=== PATIENT | male | born 1955 | race Caucasian/White ===

== ENCOUNTER 2017-10-29 20:53 | Inpatient (IN) | payer OTHER ==
--- NOTE | 2017-10-29 21:00 | CPEKG ---
Heart Rate: 91 RR Interval: 659 P-R Interval: 204 QRSD Interval: 130 QT Interval: 412 QTC Interval: 508 P [place]: 65 QRS [place]: 18 T Wave [place]: 102 EKG Severity - ABNORMAL ECG - EKG Impression: SINUS RHYTHM EKG Impression: LEFT BUNDLE BRANCH BLOCK Electronically Signed By: Lance Cohen 02-Nov-2017 09:07:41
--- NOTE | 2017-10-29 21:01 | EDPHY ---
HPI/HX/ROS/PE/MDM Narrative: CHIEF COMPLAINT: Cardiac Arrest HPI: This patient is an anticoagulated 62 y/o male with remote history of bicuspid valve replacement arriving via EMS following a witnessed cardiac arrest and subsequent return of circulation following 2 AED shocks. The patient was playing baseball and began to feel dizzy. He went to his hands and knees, and then lost consciousness. Bystanders noted he was pulseless and apneic and started CPR. Bystanders performed CPR for 4-5 minutes before an AED was brought to the scene. The AED recommended two shocks administered. On EMS arrival, the patient had return of circulation with agonal breathing. EMS crews reported "ST elevation throughout" on EKG while in route with the patient. Currently, the patient is conscious, alert, and conversant. He complains of lightheadedness and mild nausea. He has some chest pain secondary to CPR. He denies any chest pain or pressure prior to the episode. He denies being struck by a baseball or any other trauma. He has history of a bicuspid valve replacement in 1991 and is anticoagulated (Coumadin). He also takes daily ASA 81mg. REVIEW OF SYSTEMS: Aside from elements discussed in the HPI, a comprehensive 10-point review of systems was reviewed and is negative. PMH: History of bicuspid valve replacement (1991), hypothyroidism, history of prostate CA SOCIAL HISTORY: Family at bedside. . Lives in [place]. Employed. PHYSICAL EXAM: General:Patient is alert, in no acute distress. ENT:Eyes are normal to inspection. ENT inspection normal. Neck: Normal inspection. Full range of motion. Respiratory:No respiratory distress. Breath sounds normal bilaterally. Cardiovascular: Post-surgical scar over sternum. [place] from CPR and AED pads. Regular rate and rhythm. Strong peripheral pulses. Normal cap refill. Abdomen:The abdomen is nontender to palpation. There are no peritoneal signs. There are normal bowel sounds. Back: Normal to inspection. No tenderness to palpation. Skin: Normal color. No rash. Warm and dry. Extremities: Normal appearance. Full range of motion. Neuro: Oriented x3. Normal motor function. Normal sensory function. ED Course: 20:54 Met EMS at bedside. Cardiac alert. 62 y/o male presents after cardiac arrest and spontaneous return of circulation following 2 AED shocks in the field. He is currently alert and conversant. Plan for EKG, chest x-ray, labs including POC troponin, CBC, chemistries. EKG was ordered and interpreted by myself. Please see [employer] system for official reading. Sinus rhythm. LBBB. Dr. Dailey, business banking officer, en route. Attempting to acquire AED for report. Cardiology to admit. 21:[address] Dailey, business banking officer. He will evaluate the patient. CXR negative for acute processes. POC Troponin 0.05. INR 1.81. Laboratory studies otherwise largely unremarkable. Plan to admit. Dr. Dailey accepts admission for post-cardiac arrest management. - Data Points Imaging Results: Imaging Impressions Chest X-Ray 10/29/17 20:55 Impression: 1. No acute pulmonary disease. 2. Prior thoracotomy. 3. Consider chest two views when the patient's medical condition permits. Imaging: I viewed and interpreted images myself Laboratory Results: Laboratory Results 10/29/17 19:45 10/29/17 19:45 10/29/17 10/29/17 10/29/17 20:58 19:45 19:45 WBC 8.19 10^3/uL 10^3/uL (3.80-9.50) RBC 4.96 10^6/uL 10^6/uL (4.40-6.38) Hgb 14.7 g/dL g/dL (13.7-17.5) Hct 42.8 % % (40.0-51.0) MCV 86.3 fL fL (81.5-99.8) MCH 29.6 pg pg (27.9-34.1) MCHC 34.3 g/dL g/dL (32.4-36.7) RDW 12.5 % % (11.5-15.2) Plt Count 164 10^3/uL 10^3/uL (150-400) MPV 10.2 fL fL (8.7-11.7) Neut % (Auto) Not Reported Lymph % (Auto) Not Reported [place] % (Auto) Not Reported Eos % (Auto) Not Reported Baso % (Auto) Not Reported Nucleat RBC Rel Count Not Reported Absolute Neuts (auto) Not Reported Absolute Lymphs (auto) Not Reported Absolute Monos (auto) Not Reported Absolute Eos (auto) Not Reported Absolute Basos (auto) Not Reported Absolute Nucleated RBC Not Reported Immature Gran % Not Reported Seg Neutrophils % 42.0 % % Band Neutrophils % 1.0 % % Lymphocytes % 40.0 % % Monocytes % 5.0 % % Eosinophils % 7.0 % % Basophils % 2.0 % % Metamyelocytes % 2.0 % % Myelocytes % 1.0 % % Promyelocytes % 0 % % Blast Cells % 0 % % Immature Gran # Not Reported Absolute Seg Neuts 3.44 10^/uL 10^/uL (1.70-6.50) Absolute Band Neuts 0.08 10^3/uL 10^3/uL (0.00-0.70) Absolute Lymphocytes 3.28 10^3/uL H 10^3/uL (1.00-3.00) Absolute Monocytes 0.41 10^3/uL 10^3/uL (0.30-0.80) Absolute Eosinophils 0.57 10^3/uL H 10^3/uL (0.03-0.40) Absolute Basophils 0.16 10^3/uL H 10^3/uL (0.02-0.10) Absolute Metamyelocyte 0.16 10^3/mL H 10^3/mL (0.00-0.00) Absolute Myelocytes 0.08 10^3/mL H 10^3/mL (0.00-0.00) Absolute Promyelocytes 0.00 10^3/uL 10^3/uL (0.00-0.00) Absolute Plasma Cells 0.00 10^3/uL 10^3/uL (0.00-0.00) Nucleated RBCs 1.0 /100 WBC H /100 WBC (0-0) RBC/WBC/PLT Morphology NORMAL (NORMAL) Absolute Blast Cells 0.00 10^3/uL 10^3/uL (0.00-0.00) Plasma Cells % 0 % % Platelet Estimate ADEQUATE (ADEQ) Sodium 137 mEq/L mEq/L (135-145) Potassium 3.2 mEq/L L mEq/L (3.3-5.0) Chloride 107 mEq/L mEq/L (97-110) Carbon Dioxide 16 mEq/l L mEq/l (22-31) Anion Gap 14 mEq/L mEq/L (8-16) BUN 19 mg/dL mg/dL (7-23) Creatinine 1.0 mg/dL mg/dL (0.7-1.3) Estimated GFR > 60 Glucose 172 mg/dL H mg/dL (70-100) Calcium 8.5 mg/dL mg/dL (8.5-10.4) POC Troponin I 0.05 ng/mL ng/mL (0.00-0.08) Medications Given: Morphine Sulfate (Morphine) 2 mg IVP Q1HR PRN PRN Reason: Pain, Severe Stop: 11/08/17 23:01 Last Admin: 10/29/17 23:52 Dose: 2 mg Discontinued Medications Sodium Chloride (Ns) 1,000 mls @ 0 mls/hr IV EDNOW ONE; Wide Open PRN Reason: Protocol Stop: 10/29/17 21:38 Last Admin: 10/29/17 21:05 Dose: 1,000 mls Labetalol HCl (Trandate Injection) 20 mg IVP ONCE ONE Stop: 10/29/17 23:42 Last Admin: 10/29/17 23:51 Dose: 20 mg Point of Care Test Results: Chemistry 10/29/17 20:58 POC Troponin I 0.05 ng/mL ng/mL (0.00-0.08) General Initial Vital Signs: Initial Vital Signs Heart Rate 90 10/29/17 20:56 Respiratory Rate 22 H 10/29/17 20:56 Blood Pressure 173/112 H 10/29/17 20:56 O2 Sat (%) 95 10/29/17 20:56 O2 Delivery Mode Nasal Cannula O2 (L/minute) 4 Allergies/Adverse Reactions: No Known Allergies Allergy (Unverified 10/29/17 20:58) Home Medications: Medication Instructions Recorded Aspirin EC [Aspirin EC 81 mg (*)] 81 mg PO HS 10/29/17 Loratadine 10 mg PO HS PRN 10/29/17 SIMVASTATIN 10 mg PO HS 10/29/17 Tamsulosin HCl [Flomax 0.4 MG (*)] 0.4 mg PO HS 10/29/17 Warfarin Sodium [Coumadin 7.5MG 3.75 mg PO SUTH@16 10/29/17 (*)] Warfarin Sodium [Coumadin 7.5MG 7.5 mg PO MOTUWEFRSA@16 10/29/17 (*)] Departure - Departure Disposition: [facility] Acute Clinical Impression: Cardiac arrest Condition: Critical Report Scribed for: Isaiah Reyes Report Scribed by: Helen Ly Date of Report: 10/29/17 Time of Report: 20:55 Physician Review and Approval Statement: Portions of this note were transcribed by an ED scribe. I personally performed the history, physical exam, and medical decision making; and confirm the accuracy of the information in the transcribed note.
[2017-10-29 21:11] LABS: PLATELET COUNT 164 10^3/uL (150-400)
[2017-10-29] MEDS ORDERED: IOPAMIDOL (ISOVUE-370) 150 ML BTL IV ONE (21:16)
[2017-10-29] MEDS ORDERED: fentaNYL 100 MCG/2 ML INJ ONE (21:16)
[2017-10-29] MEDS ORDERED: LIDOCAINE 1% 300 MG/30 ML SDV ONE (21:16)
[2017-10-29] MEDS ORDERED: MIDAZOLAM 2 MG/2 ML VIAL ONE (21:16)
[2017-10-29] MEDS ORDERED: NS 1,000 ML IV ONE (21:37)
[2017-10-29] MEDS ORDERED: ONDANSETRON 4 MG/2 ML VIAL ONE (21:41)
[2017-10-29 22:39] LABS: INR 1.81 (0.83-1.16); PROTIME(PATIENT) 21.1 SEC (12.0-15.0)
[2017-10-29] MEDS ORDERED: ONDANSETRON 4 MG/2 ML VIAL IVP PRN (23:02)
[2017-10-29] MEDS ORDERED: NITROGLYCERIN 0.4 MG BTL SL PRN (23:02)
[2017-10-29] MEDS ORDERED: ATROPINE SULFATE 1 MG/10 ML SYR IVP PRN (23:02)
[2017-10-29] MEDS ORDERED: HYDROCODONE/APAP 5/325 TAB PO PRN (23:02)
[2017-10-29] MEDS ORDERED: LABETALOL HCL 5 MG/ML 20 ML MDV IVP ONE (23:41)
[2017-10-29] MEDS ORDERED: HEPARIN 10,000 UNIT/10 ML MDV (1,000 UNIT/ML) IVP PRN (23:43)
[2017-10-29] MEDS ORDERED: PROTOCOL POTASSIUM 1 DOSE MISC PRN (23:44)
[2017-10-29] MEDS ORDERED: PROTOCOL MAGNESIUM 1 DOSE IV PRN (23:44)
[2017-10-29] MEDS ORDERED: HEPARIN/DEXTROSE 500 ML IV SCH (23:45)
[2017-10-29] MEDS ORDERED: METOCLOPRAMIDE 10 MG/2 ML VIAL ONE (23:59)
--- NOTE | 2017-10-30 00:03 | GCON ---
[f rep st] CONSULTATION DATE OF CONSULTATION: 10/29/2017 REFERRING PHYSICIAN: Dr. Reyes CHIEF COMPLAINT: We have been asked by Dr. Reyes to evaluate the patient with an [id number] cardiac arrest. HISTORY OF PRESENT ILLNESS: The patient is a 62-year-old gentleman with a history of a bicuspid aort ic valve status post mechanical aortic valve replacement in 1991 who presents with a cardiac arrest. The patient was in his usual state of health until the day of admission, when he was playing a baseb all game. While pitching at the baseball game, patient noted the abrupt onset of dizziness followed by nik syncope. Bystanders could not feel a pulse and CPR initiated. CPR continued for approximat harper 4-5 minutes when an AED was placed. The patient was treated with 2 shocks by the AED with return of a perfusing rhythm. The patient was brought to the emergency department for further evaluation. In the emergency department, patient was noted to be hemodynamically stable. He had an EKG performe d demonstrating a left bundle branch block. The patient did not have a previous EKG at [facility] to compare. The patient was unaware of a previous left bundle branch block. We were cons ulted to help in the further management of this patient. The patient has a history of a bicuspid aor tic valve. He underwent mechanical AVR in 1991. He has been followed with yearly physicals by Dr. Whitney banuelos at [facility]. The patient denies a previous history of coronary artery disease. He does have cardiac risk factors including age, hypertension, and hyperlipidemia. Patient remains active p laying baseball and working out on a regular basis. Patient denied symptoms of chest pain with this activity. On arrival in the emergency department, patient was reporting symptoms of chest pain. He was not sure if this was related to previous CPR. No history of palpitations, orthopnea or PND. Meeta ho does report being hit in the head with a baseball approximately 1 week to 2 weeks prior to his p resentation. PAST MEDICAL HISTORY: 1. Bicuspid aortic valve. 2. Hypertension. 3. Hyperlipidemia. 4. Prostate cancer. MEDICATIONS: Please see medicine reconciliation form. ALLERGIES: No known drug allergies. SOCIAL HISTORY: Patient lives with his . The remainder of the social history was abbreviated se condary to acute nature of the patient's illness. REVIEW OF SYSTEMS: 10-point review of systems is negative, except as noted in HPI. PHYSICAL EXAMINATION: GENERAL: The patient is resting in bed. He is reporting ongoing symptoms of chest discomfort. VITALS: Temperature is afebrile. Pulse is 79, blood pressure 144/96, respiratory r ate is 20, SaO2 is 94% on 4 L nasal cannula. HEENT: Normocephalic atraumatic. Extraocular muscles intact. NECK: No JVD. No bruits. LUNGS: Clear to auscultation bilaterally. CARDIOVASCULAR: Reg ular rate and rhythm. Mechanical sounds crisp. ABDOMEN: Soft, nontender. EXTREMITIES: No clubbin g, cyanosis, or edema. 2+ dorsalis pedis pulses bilaterally. The remainder of the physical exam was abbreviated secondary to acute nature of the illness. LABORATORY: White blood cell count 8.19, hemoglobin 14.7 hematocrit 42.8, platelet count 164. Sodiu m 137, potassium 3.2, chloride 107, CO2 16,BUN 19, creatinine 1.0, initial troponin 0.05. Chest x-ra y demonstrates no acute cardiopulmonary disease. EKG demonstrates sinus rhythm with left bundle bran ch block morphology. ASSESSMENT AND PLAN: Patient is a 62-year-old gentleman with history of mechanical AVR in 1991 who p resents with an episode of syncope while playing softball. He was treated with an automated external defibrillator discharge x2 with return of a perfusing rhythm. He is reporting some symptoms of ches t discomfort at this time as well as some nausea. His EKG demonstrates a left bundle branch block wh ich was unknown previously. Reviewed risks and benefits of cardiac catheterization to further evalua te his condition. We will arrange to have this performed. /[id number]/MODL
[2017-10-30] MEDS ORDERED: POTASSIUM CL 10 MEQ TAB PO ONE (00:11)
[2017-10-30] MEDS: OXYCODONE/APAP 5/325 TAB PO PRN ×3 (00:26→13:28)
--- NOTE | 2017-10-30 00:28 | CPIP ---
[f rep st] INVASIVE CARDIAC PROCEDURE DATE OF PROCEDURE: 10/29/2017 PROCEDURE: Coronary angiography. INDICATIONS: 1. Cardiac arrest. 2. New left bundle branch block on EKG. ACCESS: Patient was prepped and draped in sterile fashion. 1% lidocaine was used to anesthetize the right inguinal region. A 6-Malay introducer sheath was placed selectively into the right common fe moral artery via modified Seldinger technique. CORONARY ANGIOGRAPHY: A 6-Malay JL4 catheter was advanced to the left main coronary artery and imag es obtained. The left main coronary artery bifurcated into an LAD and circumflex coronary arteries. The left main coronary artery appeared normal. The left anterior descending coronary artery had mil d luminal irregularities in the proximal section. There was no stenosis greater than 15%. The circu mflex coronary artery is a large vessel but was nondominant. The circumflex coronary artery appeared normal. A 6-Malay JR4 was advanced to the right coronary artery and images obtained. The right co ronary artery had a single discrete 15% stenosis in the proximal segment. LEFT VENTRICULOGRAPHY: Left ventriculography was not performed as patient has mechanical aortic valv e. FLUOROSCOPY OF THE AORTIC VALVE: Fluoroscopy was performed on the aortic valve. The aortic valve ap peared to open and close normally. COMPLICATIONS: None. CONCLUSIONS: Mild coronary artery disease without flow limitation. /[id number]/MODL
[2017-10-30 06:14] LABS: INR 1.93 (0.83-1.16); PROTIME(PATIENT) 22.1 SEC (12.0-15.0)
[2017-10-30 06:23] LABS: PLATELET COUNT 119 10^3/uL (150-400)
[2017-10-30 06:31] LABS: CREATINE KINASE 280 IU/L (0-224)
[2017-10-30] MEDS: PRAVASTATIN SODIUM 20 MG TAB PO SCH (09:24)
[2017-10-30] MEDS: LISINOPRIL 5 MG TAB PO SCH (09:24)
--- NOTE | 2017-10-30 11:54 | PDMN ---
Medical Necessity Medical necessity: [facility] Cardiology: 6/2 y/o cardiac arrest, CPR/AED provided , coronary angiography performed, pt w new L BBB. Remains in ICU on heparin drip , receiving IV MS02, IV antiemetics. CK elevated 280, Troponin elevated 2.19. Anticipate greater than 2MN for ongoing monitoring and treatment. Pt with hx biscupid aortic valve replacement.
[2017-10-30] MEDS ORDERED: ceFAZolin 2 GM/DEXTROSE 100 ML IV ONE (12:01)
[2017-10-30] MEDS ORDERED: BACITRACIN IRRIGATION/NS 50,000 UNITS/1,000 ML BTL IRR ONE (12:01)
[2017-10-30] MEDS ORDERED: NS 1,000 ML IV ONE (12:01)
--- NOTE | 2017-10-30 12:23 | CPEKG ---
Heart Rate: 51 RR Interval: 1176 P-R Interval: 168 QRSD Interval: 138 QT Interval: 564 QTC Interval: 520 P [place]: 49 QRS [place]: 0 T Wave [place]: 18 EKG Severity - ABNORMAL ECG - EKG Impression: SINUS RHYTHM EKG Impression: LEFT BUNDLE BRANCH BLOCK Electronically Signed By: Jarocho Cage 30-Oct-2017 16:47:34
--- NOTE | 2017-10-30 13:52 | PDHPUP ---
History & Physical Update H&P update statement: This history and physical update is based on an assessment of the patient which was completed after admission or registration (within 24 hours), but prior to the surgery/procedure. H&P update: H&P reviewed & patient examined, no change in patient's condition since H&P completed
--- NOTE | 2017-10-30 14:10 | ASMTCASEMG ---
Living Arrangements What is your living Answers: With Spouse arrangement? Who do you live with? Type Of Residence What kind of residence do Answers: House you live in? Discharge Plan Comments Coordination Status Comments Notes: Pt is a 62 y/o man admitted for a cardiac arrest. Pt had a interventional cardiac procedure yesterday. Pt will most likely have no needs when medically stable. No therapies ordered at this time. CM available for changes. Plan: Independent Date Signed: 10/30/2017 02:09 PM Electronically Signed By:JUDITH Anderson
[2017-10-30] MEDS ORDERED: BUPIVACAINE 0.75% 10 ML SDV ONE (14:15)
[2017-10-30] MEDS ORDERED: LIDOCAINE 1% 300 MG/30 ML SDV ONE (14:15)
--- NOTE | 2017-10-30 14:20 | PDANEPAE ---
ANE History of Present Illness here for AICD placement after witnessed cardiac arrest ANE Past Medical History - Cardiovascular History Hx Hypertension: No Hx Arrhythmias: No Hx Chest Pain: No Hx Coronary Artery / Peripheral Vascular Disease: No Hx CHF / Valvular Disease: Yes Cardiovascular History Comment: known bicuspid AV - Pulmonary History Hx COPD: No Hx Asthma/Reactive Airway Disease: No Hx Recent Upper Respiratory Infection: No Hx Oxygen in Use at Home: No Hx Sleep Apnea: No - Endocrine History Hx Diabetes: No Hypothyroid: No Hyperthyroid: No - Renal History Hx Renal Disorders: No - Liver History Hx Hepatic Disorders: No - Neurological & Psychiatric Hx Hx Neurological and Psychiatric Disorders: No - Chronic Pain History Chronic Pain: No ANE Review of Systems Review of systems is: negative Review of Systems: - Exercise capacity Exercise capacity: >=4 METS ANE Patient History - Allergies Allergies/Adverse Reactions: No Known Allergies Allergy (Unverified 10/29/17 20:58) - Home Medications Home medications: home medication list seen and reviewed Home Medications: Aspirin EC [Aspirin EC 81 mg (*)] 81 mg PO HS 10/29/17 [Last Taken 10/28/17] Loratadine 10 mg PO HS PRN 10/29/17 [Last Taken 10/28/17 23:00] SIMVASTATIN 10 mg PO HS 10/29/17 [Last Taken 10/28/17] Tamsulosin HCl [Flomax 0.4 MG (*)] 0.4 mg PO HS 10/29/17 [Last Taken 10/28/17] Warfarin Sodium [Coumadin 7.5MG (*)] 3.75 mg PO SUTH@ 10/29/17 [Last Taken 12/06] Warfarin Sodium [Coumadin 7.5MG (*)] 7.5 mg PO MOTUWEFRSA@ 10/29/17 [Last Taken 10/28/17 23:00] - Smoking Hx Smoking Status: Former smoker ANE Labs/Vital Signs - Labs Result Diagrams: 10/30/17 05:55 10/30/17 05:55 - Vital Signs Vital Signs: reviewed preoperatively; see RN documention for details Blood Pressure: 116/69 Heart Rate: 54 Respiratory Rate: 9 O2 Sat (%): 90 Height: 190.5 cm Weight: 109 kg ANE Physical Exam - Airway Neck exam: FROM Mallampati Score: Class 1 - Pulmonary Pulmonary: no respiratory distress - Cardiovascular Cardiovascular: regular rate and rhythym - ASA Status ASA Status: III ANE Anesthesia Plan Anesthesia Plan: GA with mask
[2017-10-30] MEDS ORDERED: fentaNYL 100 MCG/2 ML INJ ONE (14:35)
[2017-10-30] MEDS ORDERED: PROPOFOL/EMULSION 500 MG/50 ML BOTTLE IV ONE (14:36)
[2017-10-30] MEDS ORDERED: ONDANSETRON 4 MG/2 ML VIAL ONE (15:08)
[2017-10-30] MEDS ORDERED: DEXAMETHASONE 4 MG/ML VIAL ONE (15:08)
[2017-10-30] MEDS ORDERED: TAMSULOSIN HCL 0.4 MG CAP PO SCH (21:00)
[2017-10-30] MEDS ORDERED: ASPIRIN EC 81 MG TAB PO SCH (21:00)
[2017-10-30] MEDS ORDERED: WARFARIN SODIUM 7.5 MG TAB PO SCH (22:00)
[2017-10-30] MEDS ORDERED: HEPARIN 10,000 UNIT/10 ML MDV (1,000 UNIT/ML) IVP PRN (22:30)
[2017-10-30] MEDS ORDERED: HEPARIN/DEXTROSE 500 ML IV SCH (22:30)
[2017-10-31] MEDS: OXYCODONE/APAP 5/325 TAB PO PRN ×2 (02:07→11:13)
[2017-10-31 04:55] LABS: PLATELET COUNT 109 10^3/uL (150-400)
[2017-10-31] MEDS: LISINOPRIL 5 MG TAB PO SCH (08:30)
[2017-10-31] MEDS: PRAVASTATIN SODIUM 20 MG TAB PO SCH (08:30)
[2017-10-31 08:38] LABS: INR 1.95 (0.83-1.16); PROTIME(PATIENT) 22.3 SEC (12.0-15.0)
--- NOTE | 2017-10-31 09:16 | CPEKG ---
Heart Rate: 65 RR Interval: 923 P-R Interval: 156 QRSD Interval: 128 QT Interval: 468 QTC Interval: 487 P [place]: 48 QRS [place]: 3 T Wave [place]: 51 EKG Severity - ABNORMAL ECG - EKG Impression: SINUS RHYTHM EKG Impression: ATRIAL PREMATURE COMPLEX EKG Impression: LEFT BUNDLE BRANCH BLOCK Electronically Signed By: Lance Cohen 01-Nov-2017 11:22:23
--- NOTE | 2017-10-31 11:29 | ASMTCMCOM ---
CM Note CM Note Notes: Patient is here for AICD placement after witnessed cardiac arrest. D/C plan likely to be independent. CM available for changes. Date Signed: 10/31/2017 11:29 AM Electronically Signed By:Ladonna Brewster LCSW
[2017-10-31 12:12] VITALS: BP 121/69
--- NOTE | 2017-10-31 13:59 | GDS ---
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 Samir Martinez. ADMISSION DIAGNOSES: 1. Cardiac arrest. 2. Left bundle branch block. 3. Valvular heart disease with previous mechanical aortic valve replacement in 1991. 4. Hypertension. 5. Hyperlipidemia. 6. History of prostate cancer. DISCHARGE DIAGNOSES: 1. Status post cardiac arrest. 2. Status post AICD implantation, dual chamber, with right atrial and right ventricular lead implantation. 3. Left bundle branch block. 4. Sej-dnan-nhlqstqt coronary artery disease. 5. Hypertension. 6. Hyperlipidemia. 7. Prostate cancer. PROCEDURES PERFORMED DURING HOSPITALIZATION: 1. Chest x-ray. 2. Diagnostic cardiac catheterization. 3. AICD implantation, St. Mitch device, atrial and ventricular leads. 4. Post chest x-ray. BRIEF HISTORY: Please see H and P. Briefly, the patient is a 62-year-old male who reported being in his normal state health. On October 29, he was playing softball. While pitching the baseball, he had abrupt onset of dizziness, followed by nik syncope. Immediate bystanders could not feel a pulse, and CPR was initiated. AED was placed by bystanders, in which he was treated by 2 shocks with return of spontaneous circulation. He was transferred to [facility] for further evaluation. HOSPITAL COURSE: Patient admitted through the emergency department. Initial electrocardiogram showed a sinus rhythm, left bundle branch block. Patient was awake and alert, following commands. Due to his new left bundle branch block and cardiac arrest, he was taken emergently to the cardiac catheterization lab by Dr. Dailey of Interventional Cardiology. There, diagnostic heart catheterization was done, noting the left main was normal. LAD had mild luminal irregularities in the proximal section, but no stenosis, greater than 15 % circumflex, large vessel, but non-dominant, normal, with no flow-limiting disease. Right coronary was also done, which had a single 15% stenosis in the proximal segment. LV gram was not performed due to the patient's mechanical valve. At that point, he was transferred to the intensive care unit. At that point, electrophysiology consultation was done by Dr. Martinez, with recommendations with recent cardiac arrest of patient having an AICD implantation done. Note, AED was unable to be interpreted. On the morning of the , he was taken to the electrophysiology suite from the intensive care unit, where Dr. Martinez successfully implanted a dual-chamber St. Mitch AICD with right atrial and ventricular leads, with no complications. His vital signs were stable. He was transferred back to the intensive care unit for observation. There, since procedure, he has been stable. He has maintained sinus rhythm with no malignant arrhythmias or pauses. He has been up and walking on the unit without difficulties. PHYSICAL EXAMINATION: Done today. GENERAL APPEARANCE: Mildly obese male. He is alert and oriented to person, place, time, and situation. Appears to be in no acute distress. VITAL SIGNS: Current vital signs are blood pressure of 121/69, heart rate of 65, respirations 15, saturating 91% on room air, temperature of 37.2 degrees Celsius. HEENT: Head is normocephalic. Lips and tongue are pink and moist, with no signs of cyanosis. Conjunctivae pink. NECK: Trachea is midline, +2 carotid pulses bilateral. No auscultated bruits. No jugular vein distention. LUNGS: Clear to auscultation, no rhonchi, rales or wheezes. No accessory muscle use. No intercostal muscle retraction noted. CARDIAC: Regular rate, regular rhythm, S1, S2. Mechanical valve click noted. ABDOMEN: Soft, nontender, bowel sounds x4 quadrants. No organomegaly. No palpable masses. SKIN: [place], warm, dry, no cyanosis, no clubbing, no peripheral edema. VASCULAR: +2 carotids bilateral, +2 radials bilateral, +1 dorsal pedal and posterior tibial pulses bilateral. Incisional site, pacemaker incision site, left anterior chest, incision intact with Steri-Strips. No redness, swelling, drainage, ecchymosis, or hematoma noted. Dressing change done at that time. Catheter insertion site, right groin site, with no redness, swelling, drainage, ecchymosis, or hematoma. LABORATORY DATA: Laboratory studies drawn today showed WBC of 6.99, hemoglobin of 12.1, hematocrit of 35.4, platelet count of 109. INR was 1.95. Sodium 133, potassium 4.6, chloride 111, BUN 23, creatinine 1.0, glucose 124, calcium 7.7, magnesium 2.2. Noted on admission, patient's potassium was 3.9, and magnesium was 1.8. The patient did have an elevated troponin on admission, post catheterization of 2.190, probably from defibrillation and cardiac arrest, with CPR. STUDIES: Post cardiac catheterization, as mentioned above. AICD implantation, as mentioned above. Electrocardiogram done today showing sinus rhythm with left bundle branch block. Chest x-ray done postop day 1 from AICD implantation showing no delayed pneumothorax, left lower atelectasis. DISCHARGE DISPOSITION: Patient will be discharged home in fair condition. He is under activity restrictions of not lifting more than 10 pounds for the next week and no strenuous activity for the next 2 weeks. He has also under left arm precautions for the next 6 weeks, not lifting it higher than shoulder height. DISCHARGE MEDICATIONS: Please see discharge medication reconciliation sheet. Note that patient's INR today was 1.95. He has been resumed on home warfarin therapy. He informs me that his routine pump room operator at [facility] keeps his INR between [address] Martinez, we will give him 1 dose of Lovenox. He had been on a heparin drip during post procedure. He will resuming his regular home Coumadin dose. We will plan for him to have an INR drawn on Friday at our [place] office. Patient also was noted to be mildly hypertensive during his hospitalization and has been started on lisinopril, rest of his home medications with no change. DISCHARGE INSTRUCTIONS: Post AICD implantation and cardiac catheterization discharge instructions went over with the patient and , including monitoring for signs of infection, bleeding precautions, activity restrictions, bathing precautions, and medication compliance. Patient has a followup appointment for a device and wound check in our [place] office next week, and he will follow up with Dr. Martinez in 3 weeks at our [place] office. Also, we will plan for him to have a repeated chest x-ray done next Friday prior to device check. At the time of discharge, patient and verbalized understanding of all instructions, and they have no questions or concerns. They have been told that if any problems or concerns come up post discharge, they are to notify our office or return to the hospital. Total time spent on discharge greater than 30 minutes. /[id number]/MODL MTDD
[2017-10-31] MEDS ORDERED: WARFARIN SODIUM 7.5 MG TAB PO SCH (16:00)
--- NOTE | 2017-10-31 17:21 | EPPROC ---
Electrophysiology Procedure Note: PROCEDURE PERFORMED: 1. Implantation of an A-V Implantable Cardioverter Defibrillator 2. Subclavian vein angiography 3. Fluoroscopy 4. EP study induction of ventricular fibrillation and defibrillation testing INDICATION: This is a 62 yr old patient with AVR 26 years back who collapsed during baseball game and underwent CPR, AED determined shock was needed and with two shocks patient was revived. In view of SCD in a patient with structural heart disease, it was decided to implant dual chamber ICD for secondary prevention. PROCEDURE NOTE: Patient presented to the cardiac catheterization laboratory in a fasting, postabsorptive state. The left infraclavicular area was prepped and draped in the usual sterile fashion. administered. Lidocaine plus bupivacaine was used for local anesthesia. Using a combination of blunt and sharp dissection and electrocautery, the dissection was carried down to the prepectoral fascia. All bleeding was controlled with electrocautery. Fluoroscopy was utilized during the entire procedure for venous access and placement of the leads. Using usual technique, left cephalic vein was accessed and with a help of glidewire and a sheath, two wired were placed. Placement of the guide wires into the venous system was confirmed by low pressure blood return and also by visualizing the guide wires advancing into the inferior vena cava. A purse string suture was applied around the guide wires. #7 Fr and #8 Fr sheaths were advanced under fluoroscopic guidance over the guide wires. An active fixation ventricular ICD lead was advanced into the right ventricular apex and screwed in place. An active fixation atrial lead was advanced into the right atrial appendage and screwed in place. The peel away sheaths were removed. Pacing thresholds, sensing parameters and leads impedances were measured. There was no diaphragmatic stimulation at maximum output. The leads were sutured to the prepectoral fascia with 3 non-absorbable sutures. Pocket was created and flushed using antibiotic solution. . The pocket was again inspected for any bleeding. The leads were attached to the ICD securely. The ICD was inserted into the pocket and secured in place with a nonabsorbable suture. Fluoroscopy was performed in COONEY and CLEVE planes to verify right sided placement of the leads. Also fluoroscopy of the ICD pocket was performed. Defibrillation testing was performed. The ICD pocket was closed in 3 layers with absorbable monocryl sutures. Appropriate dressing was applied. The patient left the cardiac catheterization laboratory in stable condition. Serial Numbers: 1. Device St Mitch Fortify [place] AN [id number] 2. Atrial Lead St Mitch Tendril MRI [id number] 3. Ventricular Lead St Mitch Durata [id number] SN [id number] Stimulation Thresholds & Impedance Measurements: 1. Atrial Lead 0.7mV, 0.8@0.5ms, 436Ohms 2. Ventricular Lead 9.2mV, 0.3@0.5ms, 463Ohms Pacing Parameters: 1. Pacing mode DDDR 2. Lower rate 60 3. Upper tracking rate 130 4. Upper sensor rate 130 Tachycardia therapy parameters: VF zone: Detection 214 bpm First therapy 40Joule Subsequent therapies 40Joule VT zone: Detection 184bpm First therapy burst pacing at 84% tachycardia CL, 8beats,8 sequences Second therapy 40Joule Subsequent therapies 40 Joule Patient Problems: Problems Problem Status Onset Cardiac arrest Acute
--- NOTE | 2017-11-04 07:49 | ECHO ---
[email or web address] [address] [address] Main: [phone] Fax: Transthoracic Echocardiogram Name: RAHAT AGUILAR MR#: [id number] Study Date: 10/29/2017 Study Time: 10:45 PM Date of : 1955 Age: 62 year(s) Height: ( ) Weight: ( ) BSA: Gender: Male Examination: Echo Indication: mAVR, LV function Image Quality: Adequate Contrast: Requested by: Hima Lobo BP: / Heart Rate: Rhythm: Indication: mAVR, LV function Procedure Staff Net Programmer: Jennifer Wolfe RDCS Reading Physician: Usman Cohen MD Requesting Provider: Conclusions: No pericardial effusion. Preserved left ventricular systolic function at 55%. Septal bounce consistent with postoperative state. Aortic valve prosthesis with trace regurgitation. Right ventricular systolic pressure 24 mm of mercury. Ascending aorta of 4.1 cm. Measurements: Chambers Valvular Assessment AV/MV Valvular Assessment TV/PV Normal Normal Normal Name Value Range Name Value Range Name Value Range Ao Fabiola (2D): 3.9 cm (1.4 cm-2.6 AV Vmax: 2.40 m/s (1 m/s-1.7 TR Vmax: 2.19 mm/s ( - ) cm) m/s) TR PGmax: 19 mmHg ( - ) IVSd (2D): 1.0 cm (0.6 cm-1.1 AV maxP mmHg ( - ) syst. PAP: 24 mmHg ( - ) cm) AV meanP mmHg ( - ) PV Vmax: 1.14 m/s (0.6 m/s-0.9 LVDd (2D): 5.4 cm (4.2 cm-5.9 JEOVANY (VTI): 1.5 cm ( - ) m/s) cm) MV E Vmax: 0.73 m/s ( - ) PV PGmax: 5 mmHg ( - ) LVDs (2D): 3.7 cm (2.1 cm-4 MV A Vmax: 0.82 m/s ( - ) cm) MV E/A: 0.89 ( - ) LVPWd (2D): 1.0 cm (0.6 cm-1 cm) MV PHT: 0.050 s ( - ) LVOTd 2.5 cm 2.5 cm mm MVA (PHT): 4.4 s ( - ) LVEF (BP): 58 % (>=55 %) Visual EF: 55 % RVDd(2D): 3.1 cm (1.9 cm-3.8 cmmm) Continued Measurements: Chambers Valvular Assessment AV/MV Valvular Assessment TV/PV Name Value Name Value Name Value LADs: 3.0 cm MV DecTime: 169 m/s CVP (est.): 5 mmHg LADs Lon.9 cm MV E' Septal: 0.07 m/s Patient: RAHAT AGUILAR Study Date: 10/29/2017 Page 1 of 2 10:45 PM LA Area: 23.6 cm2 MV E/E' Septal: 10.40 RA Area: 21.6 cm2 MV E/E' Lateral: 12.30 Additional Vessels Name Value Ao Ascendin.1 cm Inferior Vena Cava: 2.1 cm Findings: Left Ventricle: Normal size left ventricle. No LV hypertrophy. Normal global systolic LV function. The ejection fraction is visually estimated to be 55 %. No regional wall motion abnormality. Unable to assess diastolic dysfunction. Right Ventricle: Normal size right ventricle. Normal RV function. Left Atrium: The left atrium is normal in size. Right Atrium: The right atrium is normal in size. Mitral Valve: The mitral valve is normal in appearance and function. Mild mitral valve regurgitation is present. No mitral stenosis is present. Aortic Valve: The aortic valve is a mechanical prosthesis.. Normal functioning aortic valve prosthesis. The prosthetic aortic valve is normal. Trivial prosthesis regurgitation. Tricuspid Valve: The tricuspid valve is normal in appearance and function. Mild tricuspid regurgitation is present. The pulmonary artery pressure is normal. Right ventricular systolic pressure measures 24mmHg. Pulmonic Valve: The pulmonic valve is normal in appearance and function. Mild pulmonic valve regurgitation is noted. Aorta: The aorta is normal. Normal size aortic root measuring 3.9 cm. Normal size ascending aorta measuring 4.1 cm. IVC: The IVC is normal sized. Pericardium: No pericardial effusion. No pleural effusion. (No Signature Object) Patient: RAHAT AGUILAR Study Date: 10/29/2017 Page 2 of 2 10:45 PM [id number]
--- NOTE | 2017-11-11 12:27 | GPROG ---
[f rep st] PROGRESS NOTE POST ANESTHESIA CARE NOTE This patient underwent an AICD placement with Dr. Martinez. The patient was taken to the PACU in stable condition. The patient's pain and nausea were adequately controlled. There were no apparent complic ations from this anesthetic. /[id number]/MODL
== END 2017-10-31 13:50 | disposition home or self-care (01) | DRG 224 ==
LOC: EDUNIT# → F2N 23:19
PROVIDERS: ADMIT Internal Medicine Cardiovascular Disease; ATTEND Internal Medicine Cardiovascular Disease
PROC: 4A023N7 Measurement of Cardiac Sampling and Pressure, Left Heart, Percutaneous Approach (ICD-10-PCS; 2017-10-29)
PROC: B2111ZZ Fluoroscopy of Multiple Coronary Arteries using Low Osmolar Contrast (ICD-10-PCS; 2017-10-29)
PROC: 02H73KZ Insertion of Defibrillator Lead into Left Atrium, Percutaneous Approach (ICD-10-PCS; principal; 2017-10-31)
PROC: 02HK3KZ Insertion of Defibrillator Lead into Right Ventricle, Percutaneous Approach (ICD-10-PCS; principal; 2017-10-31)
PROC: 0JH608Z Insertion of Defibrillator Generator into Chest Subcutaneous Tissue and Fascia, Open Approach (ICD-10-PCS; principal; 2017-10-31)
DX: I44.7 Left bundle-branch block, unspecified (principal); I46.2 Cardiac arrest due to underlying cardiac condition; I25.10 Atherosclerotic heart disease of native coronary artery without angina pectoris; E03.9 Hypothyroidism, unspecified; I10 Essential (primary) hypertension; E78.5 Hyperlipidemia, unspecified; Z85.46 Personal history of malignant neoplasm of prostate; Z95.2 Presence of prosthetic heart valve; Z79.01 Long term (current) use of anticoagulants; Z79.82 Long term (current) use of aspirin
CPT/HCPCS: 84484-PO; 85520-90; C1721; C1760; C1769; C1777; C1898; J0690; J1100; J1644; J2250; J2270; J2405; J2704; J2765; J3010; Q9967